=== PATIENT | male | born 2000 | race Caucasian/White ===

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

== ENCOUNTER 2021-07-27 06:41 | Emergency (ER) | payer MEDICAID ==
[~2021-07-27] VITALS: Ht 177.8 cm; Wt 79.4 kg
[~2021-07-27 06:41] MED LIST: INSLANTI SC
[2021-07-27] MEDS ORDERED: SODIUM CHLORIDE 0.9% 1,000 ML IVB ONE (07:15)
[2021-07-27] MEDS ORDERED: SODIUM CHLORIDE 0.9% 3,000 ML IV ONE (07:15)
[2021-07-27 07:45] LABS: Hemoglobin 15.9 g/dL (13.5-17.5)
[2021-07-27 07:47] LABS: Hematocrit 53.8 % (41.0-53.0); Mean Corpuscular Hemoglobin 33.4 pg (28.0-32.0); Mean Corpuscular Hgb Conc. 29.6 g/dL (32.0-36.0); Mean Corpuscular Volume 113.2 fL (80.0-100.0); Red Blood Cells 4.75 10^6/uL (4.5-5.90); Red Cell Distribution Width 14.1 % (11.8-14.3)
[2021-07-27 07:58] LABS: White Blood Cell 41.4 10^3/uL (4.4-10.8)
[2021-07-27] MEDS: PROMETHAZINE HCL 25 MG/ML 1ML IV PRN ×2 (08:00→11:51)
[2021-07-27 08:01] LABS: Urine Bacteria NONE SEEN /hpf (None Seen); Urine Blood Negative /uL (Negative); Urine Specific Gravity 1.025 (1.001-1.035); Urine WBC <1 /hpf (0 - 3)
[2021-07-27 08:02] LABS: Basophils % (manual) 0 (0.0-2.0); Blast Cells 0; Eosinophils % (manual) 0 (0-7); Myelocytes % 0; Promyelocytes % 0; Reactive Lymphocytes 0
[2021-07-27] MEDS ORDERED: SODIUM BICARBONATE 8.4 % INJ 50ML VIAL IV ONE ×4 (08:15→14:35)
[2021-07-27 08:49] LABS: Alcohol, Urine < 3.0 mg/dL (0-10); Amphetamine Screen, Urine NEGATIVE (NEGATIVE); Barbiturate Scree,Urine NEGATIVE (NEGATIVE); Benzodiazephine Screen, Urine NEGATIVE (NEGATIVE); Cannabinoid Screen, Urine POSITIVE (NEGATIVE); Cocaine Screen, Urine NEGATIVE (NEGATIVE); Opiate Scree,Urine NEGATIVE (NEGATIVE); Phencyclidine Screen, Urine NEGATIVE (NEGATIVE)
[2021-07-27] MEDS ORDERED: LORazepam 2MG/ML-1ML VIAL IV ONE ×2 (11:30→13:30)
[2021-07-27] MEDS ORDERED: LORazepam 2MG/ML-1ML VIAL ONE (11:34)
[2021-07-27 11:51] LABS: Band Neutrophils % (manual) 14; Lymphocytes % (manual) 9 (10.0-50.0); Metamyelocytes % 2; Monocytes % (manual) 3 (0-12)
[2021-07-27 12:00] LABS: Albumin 3.4 g/dL (3.4-5.0); BUN/Creatinine Ratio 14.4; Bilirubin, Total 0.5 mg/dL (0.2-1.0); Calcium 7.1 mg/dL (8.5-10.1); Total Protein 6.5 g/dL (6.4-8.2)
[2021-07-27 12:03] LABS: Magnesium 0.4 mg/dL (1.6-2.6); Potassium 5.6 mmol/L (3.5-5.1)
[2021-07-27] MEDS ORDERED: MAGNESIUM SULFATE 1GM/100ML 100 ML IV ONE (12:11)
[2021-07-27] MEDS ORDERED: InsuLIN REG 1unit/0.01ml Soln (100units/ml) IV ONE (12:15)
[2021-07-27] MEDS ORDERED: InsuLIN R (HUMAN) 100 UNITS in SODIUM CHL 0.9% 99 ML IV SCH (12:15)
[2021-07-27] MEDS ORDERED: DEXTROSE (50%) 50ML SYRG IV PRN ×2 (12:15→22:00)
[2021-07-27] MEDS: MAGNESIUM SULFATE 1GM/100ML 100 ML IV SCH ×3 (12:16→14:56)
[2021-07-27] MEDS: SODIUM CHLORIDE 0.9% 1,000 ML IV SCH ×2 (12:16→14:30)
[2021-07-27] MEDS: ACCU-CHEK COMFORT CURVE STRIP VI SCH ×7 (13:41→22:30)
[2021-07-27] MEDS ORDERED: SODIUM CHLORIDE 0.9% 1,000 ML IV ONE ×2 (15:45→22:00)
[2021-07-27] MEDS ORDERED: SODIUM CHLORIDE 0.9% 1,000 ML IV SCH ×4 (16:15→21:30)
[2021-07-27] MEDS ORDERED: D5W/SOD CHLO 0.9% 1,000 ML IV ONE (16:30)
[2021-07-27 17:26] LABS: BUN/Creatinine Ratio 13.1; Calcium 7.9 mg/dL (8.5-10.1)
[2021-07-27] MEDS ORDERED: D5W/SOD CHL 0.45% 1,000 ML IV ONE (18:30)
[2021-07-27 18:35] LABS: BUN/Creatinine Ratio 12.7; Calcium 7.8 mg/dL (8.5-10.1); Magnesium 3.2 mg/dL (1.6-2.6); Potassium 4.1 mmol/L (3.5-5.1)
[2021-07-27] MEDS ORDERED: D5W/SOD CHLO 0.9% 1,000 ML IV SCH (21:30)
[2021-07-27] MEDS ORDERED: INSULIN LANTUS (GLARGINE) 1 /0.01ml (100units/ml) SC SCH (22:00)
[2021-07-27] MEDS ORDERED: SOD CHL 0.45% 1,000 ML IV SCH (22:00)
[2021-07-28] VITALS: BP 120/78
[2021-07-28] MEDS ORDERED: ACCU-CHEK COMFORT CURVE STRIP VI SCH
[2021-07-28] MEDS ORDERED: InsuLIN REG 1unit/0.01ml Soln (100units/ml) SC SCH
[2021-07-28] MEDS: ACCU-CHEK COMFORT CURVE STRIP VI SCH (00:04)
[2021-07-28 00:09] LABS: Calcium 7.9 mg/dL (8.5-10.1); Potassium 3.6 mmol/L (3.5-5.1)
[2021-07-28 00:12] LABS: BUN/Creatinine Ratio 12.4
== END 2021-07-28 00:48 | disposition short-term general hospital (02) ==
LOC: ER 06:41 → EDBD 06:41 → ER 07-28 00:48
DX: R41.82 Altered mental status, unspecified (principal); E11.10 Type 2 diabetes mellitus with ketoacidosis without coma; D72.829 Elevated white blood cell count, unspecified; E87.4 Mixed disorder of acid-base balance; I61.9 Nontraumatic intracerebral hemorrhage, unspecified; F12.10 Cannabis abuse, uncomplicated; R45.1 Restlessness and agitation; Z20.822 Contact with and (suspected) exposure to COVID-19
CPT/HCPCS: 36415; 36600; 70450; 71045; 76775; 80048; 80053; 80307; 81001; 82010; 82140; 82607; 82805; 82962; 83690; 83735; 84443; 85007; 85027; 87040; 87426; 93005; 96361; 96365; 96366; 96372; 96375; 96376; 99291; J1815; J2060; J2550; J3475; J7030; A4565; J7042

== ENCOUNTER 2021-11-16 21:59 | Inpatient (IN) | payer BC, MEDICAID ==
[~2021-11-16] VITALS: Ht 177.8 cm; Wt 72.3 kg
[2021-11-17] VITALS (8 sets, daily range): BP systolic 94–130; BP diastolic 50–92
[2021-11-17 00:59] LABS: Eosinophils # (auto) 0 10 ^3/uL (0-0.8); Eosinophils % (auto) 0.1 % (0.0-7.0); Lymphocytes # (auto) 1.7 10 ^3/uL (0.4-5.4); Neutrophils # (auto) 10.5 10 ^3/uL (1.6-8.6)
[2021-11-17 01:03] LABS: Basophils # (auto) 0.1 10 ^3/uL (0-0.2); Basophils % (auto) 0.5 % (0.0-2.0); Hematocrit 54.5 % (41.0-53.0); Lymphocytes % (auto) 13.6 % (10.0-50.0); Mean Corpuscular Hemoglobin 34.1 pg (28.0-32.0); Mean Corpuscular Hgb Conc. 31.3 g/dL (32.0-36.0); Mean Corpuscular Volume 109.2 fL (80.0-100.0); Monocytes # (auto) 0.4 10 ^3/uL (0-1.3); Monocytes % (auto) 3.4 % (0.0-12.0); Neutrophils % (auto) 82.4 % (37.0-80.0); Nucleated Red Blood Cells % 0.1 %; Red Blood Cells 4.99 10^6/uL (4.5-5.90); Red Cell Distribution Width 14.9 % (11.8-14.3); White Blood Cell 12.7 10^3/uL (4.4-10.8)
[2021-11-17 01:58] LABS: Urine Bacteria NONE SEEN /hpf (None Seen); Urine Blood Negative /uL (Negative); Urine Specific Gravity 1.026 (1.001-1.035); Urine WBC <1 /hpf (0 - 3)
[2021-11-17] MEDS ORDERED: LORazepam 2MG/ML-1ML VIAL IV ONE ×4 (02:00→06:38)
[2021-11-17] MEDS ORDERED: SODIUM CHLORIDE 0.9% 3,000 ML IV ONE (02:00)
[2021-11-17 03:21] LABS: Albumin 4.1 g/dL (3.4-5.0); Calcium 8.2 mg/dL (8.5-10.1); Magnesium 2.6 mg/dL (1.6-2.6)
[2021-11-17 03:26] LABS: Bilirubin, Total 0.5 mg/dL (0.2-1.0); Potassium 5.7 mmol/L (3.5-5.1); Total Protein 7.6 g/dL (6.4-8.2)
[2021-11-17] MEDS: InsuLIN R (HUMAN) 100 UNITS in SODIUM CHL 0.9% 99 ML IV SCH (03:30)
[2021-11-17] MEDS ORDERED: DEXTROSE (50%) 50ML SYRG IV PRN ×2 (03:30→10:00)
[2021-11-17] MEDS ORDERED: InsuLIN REG 1unit/0.01ml Soln (100units/ml) ONE (03:37)
[2021-11-17] MEDS: ACCU-CHEK COMFORT CURVE STRIP VI SCH ×18 (04:30→22:31)
[2021-11-17] MEDS ORDERED: LORazepam 2MG/ML-1ML VIAL ONE (05:16)
[2021-11-17] MEDS: LORazepam 2MG/ML-1ML VIAL ONE ×2 (06:29→06:38)
[2021-11-17] MEDS: SODIUM BICARBONATE 8.4% INJ 50ML SYRINGE ONE ×2 (06:30→06:38)
[2021-11-17] MEDS ORDERED: SODIUM BICARBONATE 8.4 % INJ 50ML VIAL IV ONE (06:38)
[2021-11-17] MEDS: SODIUM CHLORIDE 0.9% 1,000 ML IV SCH ×4 (06:38→12:27)
[2021-11-17] MEDS ORDERED: ETOMIDATE (2MG/ML) 20ML VIAL IV ONE ×2 (07:13→09:00)
[2021-11-17] MEDS ORDERED: MIDAZOLAM DRIP 50 mg/50mL 50 ML IV ONE (07:13)
[2021-11-17] MEDS ORDERED: SUCCINYLCHOLINE CHLORIDE 20 MG/ML 10ML VIAL IV ONE (07:13)
[2021-11-17] MEDS ORDERED: ROCURONIUM 10MG/ML 10ML VIAL IV ONE ×2 (07:18→09:00)
[2021-11-17] MEDS: MIDAZOLAM DRIP 50 mg/50mL 50 ML IV SCH ×5 (07:24→21:26)
[2021-11-17] MEDS ORDERED: SODIUM BICARB 50ML SYR 150 ML in SODIUM CHLORIDE 0.9% 1,000 ML IV ONE ×2 (07:45→08:45)
[2021-11-17 08:39] LABS: Mean Corpuscular Hemoglobin 32.9 pg (28.0-32.0)
[2021-11-17 08:44] LABS: Hematocrit 48.4 % (41.0-53.0); Hemoglobin 13.5 g/dL (13.5-17.5); Mean Corpuscular Hgb Conc. 27.8 g/dL (32.0-36.0); Mean Corpuscular Volume 118.4 fL (80.0-100.0); Red Blood Cells 4.09 10^6/uL (4.5-5.90); Red Cell Distribution Width 15.3 % (11.8-14.3); White Blood Cell 28.1 10^3/uL (4.4-10.8)
[2021-11-17 08:46] LABS: Basophils % (manual) 0 (0.0-2.0); Blast Cells 0; Eosinophils % (manual) 0 (0-7); Reactive Lymphocytes 0
[2021-11-17 08:55] LABS: Calcium 7.9 mg/dL (8.5-10.1); Magnesium 3.1 mg/dL (1.6-2.6)
[2021-11-17 09:04] LABS: BUN/Creatinine Ratio 12.5; Phosphorus 8.2 mg/dL (2.5-4.90)
[2021-11-17 09:19] LABS: Potassium 7.9 mmol/L (3.5-5.1)
[2021-11-17 09:31] LABS: Band Neutrophils % (manual) 6; Lymphocytes % (manual) 11 (10.0-50.0); Metamyelocytes % 1; Monocytes % (manual) 2 (0-12); Myelocytes % 3; Promyelocytes % 2
[2021-11-17 09:55] LABS: Albumin 3.8 g/dL (3.4-5.0); Calcium 7.5 mg/dL (8.5-10.1)
[2021-11-17] MEDS ORDERED: INSULIN LANTUS (GLARGINE) 1 /0.01ml (100units/ml) SC ONE (10:00)
[2021-11-17] MEDS ORDERED: InsuLIN R (HUMAN) 100 UNITS in SODIUM CHL 0.9% 99 ML IV SCH (10:00)
[2021-11-17] MEDS ORDERED: POTASSIUM CHL 20MEQ/100ML 100 ML IV PRN (10:00)
[2021-11-17] MEDS ORDERED: VANCOMYCIN PER PHARMACY 0 MG IV SCH (10:00)
[2021-11-17] MEDS ORDERED: POTASSIUM CHL 20MEQ/100ML 200 ML IV PRN (10:00)
[2021-11-17] MEDS ORDERED: MAGNESIUM SULFATE 1GM/100ML 200 ML IV ONE (10:00)
[2021-11-17 10:04] LABS: BUN/Creatinine Ratio 12.5; Bilirubin, Total 0.5 mg/dL (0.2-1.0); Total Protein 7.2 g/dL (6.4-8.2)
[2021-11-17 10:14] LABS: Potassium 6.9 mmol/L (3.5-5.1)
[2021-11-17] MEDS ORDERED: SODIUM CHLORIDE 0.9% 1,000 ML IV SCH ×4 (10:15→16:00)
[2021-11-17] MEDS: fentaNYL Drip 2500mCg/250mlNS 250 ML IV SCH ×2 (10:42→22:02)
[2021-11-17] MEDS ORDERED: VANCOMYCIN 1GM/250ML 250 ML IV ONE (11:00)
[2021-11-17 11:28] LABS: Lactic Acid w/Reflex 2.4 mmol/L (0.4-2.0)
[2021-11-17] MEDS: InsuLIN REG 1unit/0.01ml Soln (100units/ml) SC SCH ×3 (11:30→22:00)
[2021-11-17] MEDS: PIPERACILLIN-TAZOB 3.375GM 100 ML IV SCH ×3 (12:53→23:35)
[2021-11-17] MEDS: D5W/SOD CHLO 0.9% 1,000 ML IV SCH (15:13)
[2021-11-17 16:37] LABS: Calcium 7.7 mg/dL (8.5-10.1); Potassium 3.4 mmol/L (3.5-5.1)
[2021-11-17 16:39] LABS: BUN/Creatinine Ratio 10.3
[2021-11-17 22:44] LABS: Calcium 7.5 mg/dL (8.5-10.1)
[2021-11-17 22:47] LABS: BUN/Creatinine Ratio 10.1
[2021-11-17 22:58] LABS: Potassium 2.9 mmol/L (3.5-5.1)
[2021-11-17] MEDS ORDERED: SOD CHL 0.45% 1,000 ML IV SCH (23:30)
[2021-11-17] MEDS: POTASSIUM CHL 20MEQ/100ML 100 ML IV SCH (23:58)
[2021-11-18] VITALS (35 sets, daily range): BP systolic 107–140; BP diastolic 64–98
[2021-11-18] MEDS: PROPOFOL 100 ML IV SCH ×2 (00:41→19:03)
[2021-11-18] MEDS: ACCU-CHEK COMFORT CURVE STRIP VI SCH ×10 (01:30→18:47)
[2021-11-18] MEDS: POTASSIUM CHL 20MEQ/100ML 100 ML IV SCH ×6 (03:00→23:00)
[2021-11-18] MEDS: D5W/SOD CHLO 0.9% 1,000 ML IV SCH (03:27)
[2021-11-18] MEDS: InsuLIN R (HUMAN) 100 UNITS in SODIUM CHL 0.9% 99 ML IV SCH (03:30)
[2021-11-18 04:51] LABS: Calcium 7.6 mg/dL (8.5-10.1); Potassium 3.3 mmol/L (3.5-5.1)
[2021-11-18 04:58] LABS: BUN/Creatinine Ratio 9.9
[2021-11-18] MEDS ORDERED: VANCOMYCIN 1GM/250ML 250 ML IV SCH (05:00)
[2021-11-18] MEDS: PIPERACILLIN-TAZOB 3.375GM 100 ML IV SCH ×3 (06:04→18:47)
[2021-11-18] MEDS: InsuLIN REG 1unit/0.01ml Soln (100units/ml) SC SCH ×4 (07:52→22:00)
[2021-11-18] MEDS: INSULIN LANTUS (GLARGINE) 1 /0.01ml (100units/ml) SC SCH (07:54)
[2021-11-18] MEDS ORDERED: LACTATED RINGER'S 1,000 ML IV ONE (09:30)
[2021-11-18] MEDS ORDERED: INSULIN LANTUS (GLARGINE) 1 /0.01ml (100units/ml) SC SCH (10:00)
[2021-11-18 10:01] LABS: Basophils # (auto) 0 10 ^3/uL (0-0.2); Basophils % (auto) 0.1 % (0.0-2.0); Eosinophils # (auto) 0.1 10 ^3/uL (0-0.8); Eosinophils % (auto) 0.4 % (0.0-7.0); Hematocrit 37.2 % (41.0-53.0); Hemoglobin 12.3 g/dL (13.5-17.5); Lymphocytes # (auto) 1.5 10 ^3/uL (0.4-5.4); Mean Corpuscular Hemoglobin 32.8 pg (28.0-32.0); Mean Corpuscular Hgb Conc. 33.1 g/dL (32.0-36.0); Mean Corpuscular Volume 99.3 fL (80.0-100.0); Monocytes % (auto) 7.9 % (0.0-12.0); Neutrophils # (auto) 9.9 10 ^3/uL (1.6-8.6); Neutrophils % (auto) 79.6 % (37.0-80.0); Red Blood Cells 3.75 10^6/uL (4.5-5.90); Red Cell Distribution Width 14.2 % (11.8-14.3); White Blood Cell 12.5 10^3/uL (4.4-10.8)
[2021-11-18 10:10] LABS: Albumin 2.7 g/dL (3.4-5.0); Calcium 7.7 mg/dL (8.5-10.1)
[2021-11-18 10:13] LABS: Bilirubin, Total 0.4 mg/dL (0.2-1.0); Total Protein 5.6 g/dL (6.4-8.2)
[2021-11-18 10:15] LABS: BUN/Creatinine Ratio 7.8
[2021-11-18 10:35] LABS: Urine Bacteria FEW /hpf (None Seen); Urine Blood 2+ /uL (Negative); Urine Specific Gravity 1.017 (1.001-1.035); Urine WBC 8 /hpf (0 - 3)
[2021-11-18 11:57] LABS: Alcohol, Urine < 3.0 mg/dL (0-10); Amphetamine Screen, Urine NEGATIVE (NEGATIVE); Barbiturate Scree,Urine NEGATIVE (NEGATIVE); Benzodiazephine Screen, Urine POSITIVE (NEGATIVE); Cannabinoid Screen, Urine POSITIVE (NEGATIVE); Cocaine Screen, Urine POSITIVE (NEGATIVE); Phencyclidine Screen, Urine NEGATIVE (NEGATIVE)
[2021-11-18] MEDS ORDERED: FUROSEMIDE 40 MG/4 ML VIAL IV ONE (12:00)
[2021-11-18] MEDS ORDERED: D5W/SOD CHL 0.45% 1,000 ML IV SCH (12:00)
[2021-11-18 12:05] LABS: Opiate Scree,Urine NEGATIVE (NEGATIVE)
[2021-11-18] MEDS: MIDAZOLAM DRIP 50 mg/50mL 50 ML IV SCH (13:11)
[2021-11-18 16:53] LABS: Albumin 2.6 g/dL (3.4-5.0); Calcium 7.8 mg/dL (8.5-10.1)
[2021-11-18 16:56] LABS: BUN/Creatinine Ratio 6.9
[2021-11-18 16:59] LABS: Bilirubin, Total 0.5 mg/dL (0.2-1.0); Total Protein 5.5 g/dL (6.4-8.2)
[2021-11-18] MEDS: VANCOMYCIN 1GM/250ML 250 ML IV SCH (18:43)
[2021-11-18] MEDS ORDERED: POTASSIUM CHL 20MEQ/100ML 300 ML IV ONE (18:58)
[2021-11-18] MEDS: D5W/SOD CHL 0.45% 1,000 ML IV SCH (19:04)
[2021-11-19] VITALS (90 sets, daily range): BP systolic 85–147; BP diastolic 52–90
[2021-11-19] MEDS: D5W/SOD CHL 0.45% 1,000 ML IV SCH (05:00)
[2021-11-19 05:26] LABS: Albumin 2.3 g/dL (3.4-5.0); Calcium 7.5 mg/dL (8.5-10.1); Magnesium 2.2 mg/dL (1.6-2.6); Potassium 3.3 mmol/L (3.5-5.1)
[2021-11-19 05:28] LABS: Lactic Acid w/Reflex 2.9 mmol/L (0.4-2.0)
[2021-11-19 05:29] LABS: BUN/Creatinine Ratio 6.8
[2021-11-19] MEDS: VANCOMYCIN 1GM/250ML 250 ML IV SCH (05:30)
[2021-11-19 05:32] LABS: Bilirubin, Total 1.1 mg/dL (0.2-1.0); Total Protein 5.3 g/dL (6.4-8.2)
[2021-11-19 05:33] LABS: Basophils # (auto) 0 10 ^3/uL (0-0.2); Basophils % (auto) 0.3 % (0.0-2.0); Eosinophils # (auto) 0.2 10 ^3/uL (0-0.8); Eosinophils % (auto) 2.1 % (0.0-7.0); Hematocrit 34.3 % (41.0-53.0); Hemoglobin 11.6 g/dL (13.5-17.5); Lymphocytes % (auto) 26.9 % (10.0-50.0); Mean Corpuscular Hemoglobin 33.9 pg (28.0-32.0); Mean Corpuscular Hgb Conc. 33.9 g/dL (32.0-36.0); Monocytes # (auto) 0.2 10 ^3/uL (0-1.3); Monocytes % (auto) 3.3 % (0.0-12.0); Neutrophils % (auto) 67.4 % (37.0-80.0); Nucleated Red Blood Cells % 0.1 %; Red Blood Cells 3.43 10^6/uL (4.5-5.90); Red Cell Distribution Width 14.3 % (11.8-14.3); White Blood Cell 7.5 10^3/uL (4.4-10.8)
[2021-11-19] MEDS: ACCU-CHEK COMFORT CURVE STRIP VI SCH ×5 (06:00→22:00)
[2021-11-19] MEDS: INSULIN LANTUS (GLARGINE) 1 /0.01ml (100units/ml) SC SCH (07:00)
[2021-11-19] MEDS: InsuLIN REG 1unit/0.01ml Soln (100units/ml) SC SCH ×4 (07:00→22:00)
[2021-11-19] MEDS: PIPERACILLIN-TAZOB 3.375GM 100 ML IV SCH ×4 (07:00→17:49)
[2021-11-19] MEDS: fentaNYL Drip 2500mCg/250mlNS 250 ML IV SCH (10:00)
[2021-11-19] MEDS ORDERED: INSLISPI SC (10:09)
[2021-11-19] MEDS: SOD CHL 0.45% 1,000 ML IV SCH ×2 (10:26→17:49)
[2021-11-19] MEDS: POTASSIUM CHL 20MEQ/100ML 100 ML IV SCH ×3 (10:44→15:19)
[2021-11-19] MEDS: FREE WATER GT SCH ×4 (11:52→22:00)
[2021-11-19 12:12] LABS: Anion Gap 7 (5-15); BUN/Creatinine Ratio 6.3; Blood Urea Nitrogen 9 mg/dL (7-18); Calcium 7.7 mg/dL (8.5-10.1); Carbon Dioxide 22 mmol/L (21-32); Chloride 127 mmol/L (98-107); GFR African American 80 mL/min; GFR Non-African American 66 mL/min; Glucose 216 mg/dL (74-106); Potassium 3.6 mmol/L (3.5-5.1); Sodium 156 mmol/L (136-145)
[2021-11-19] MEDS: MIDAZOLAM DRIP 50 mg/50mL 50 ML IV SCH ×2 (13:00→17:35)
[2021-11-19 13:25] LABS: Hepatitis B Surface Antibody Negative (Negative)
[2021-11-19] MEDS ORDERED: POTASSIUM CHL 20MEQ/100ML 100 ML IV ONE (13:30)
[2021-11-19 14:04] LABS: Hepatitis A Total Antibody Positive (Negative)
[2021-11-19] MEDS: PROPOFOL 100 ML IV SCH (15:20)
[2021-11-19 15:47] LABS: Hepatitis C Antibody Negative (Negative)
[2021-11-19 16:35] LABS: BUN/Creatinine Ratio 6.4; Calcium 8.2 mg/dL (8.5-10.1); Potassium 3.3 mmol/L (3.5-5.1)
[2021-11-19] MEDS ORDERED: AZITHROMYCIN 500MG/ 250ML 250 ML IV ONE (18:30)
[2021-11-19] MEDS ORDERED: cefTRIAXone 1GM/50ML D5W 50 ML IV ONE (18:30)
[2021-11-20] VITALS (104 sets, daily range): BP systolic 85–162; BP diastolic 46–110
[2021-11-20] MEDS: PIPERACILLIN-TAZOB 3.375GM 100 ML IV SCH ×4 (00:30→18:41)
[2021-11-20] MEDS: SOD CHL 0.45% 1,000 ML IV SCH ×3 (02:00→17:57)
[2021-11-20] MEDS: FREE WATER GT SCH ×6 (02:00→22:00)
[2021-11-20 05:05] LABS: Basophils # (auto) 0 10 ^3/uL (0-0.2); Basophils % (auto) 0.4 % (0.0-2.0); Eosinophils # (auto) 0.3 10 ^3/uL (0-0.8); Eosinophils % (auto) 3.3 % (0.0-7.0); Hemoglobin 11.7 g/dL (13.5-17.5); Lymphocytes # (auto) 1.6 10 ^3/uL (0.4-5.4); Lymphocytes % (auto) 18.9 % (10.0-50.0); Mean Corpuscular Hemoglobin 33.4 pg (28.0-32.0); Mean Corpuscular Hgb Conc. 33.5 g/dL (32.0-36.0); Mean Corpuscular Volume 99.8 fL (80.0-100.0); Monocytes # (auto) 0.3 10 ^3/uL (0-1.3); Monocytes % (auto) 3.5 % (0.0-12.0); Neutrophils # (auto) 6.2 10 ^3/uL (1.6-8.6); Neutrophils % (auto) 73.9 % (37.0-80.0); Nucleated Red Blood Cells % 0.1 %; Red Blood Cells 3.51 10^6/uL (4.5-5.90); Red Cell Distribution Width 14.5 % (11.8-14.3); White Blood Cell 8.4 10^3/uL (4.4-10.8)
[2021-11-20 05:17] LABS: INR 1.21 (0.9-1.15)
[2021-11-20 05:26] LABS: Albumin 1.9 g/dL (3.4-5.0); Calcium 7.8 mg/dL (8.5-10.1); Magnesium 1.8 mg/dL (1.6-2.6)
[2021-11-20 05:28] LABS: BUN/Creatinine Ratio 7.8
[2021-11-20 05:30] LABS: Bilirubin, Total 1.3 mg/dL (0.2-1.0); Total Protein 5.1 g/dL (6.4-8.2)
[2021-11-20] MEDS: InsuLIN REG 1unit/0.01ml Soln (100units/ml) SC SCH ×3 (06:43→17:56)
[2021-11-20] MEDS: INSULIN LANTUS (GLARGINE) 1 /0.01ml (100units/ml) SC SCH (07:00)
[2021-11-20] MEDS: ACCU-CHEK COMFORT CURVE STRIP VI SCH ×3 (07:16→17:57)
[2021-11-20] MEDS: fentaNYL Drip 2500mCg/250mlNS 250 ML IV SCH (10:00)
[2021-11-20] MEDS ORDERED: PANTOPRAZOLE 40 MG/10 ML VIAL INJ IV ONE (10:45)
[2021-11-20] MEDS: POTASSIUM CHL 20MEQ/100ML 100 ML IV SCH ×2 (12:11→16:31)
[2021-11-20] MEDS ORDERED: POTASSIUM CHL 20MEQ/100ML 100 ML IV SCH ×2 (14:00)
[2021-11-20] MEDS ORDERED: DEXTROSE (50%) 50ML SYRG IV PRN (14:30)
[2021-11-20] MEDS ORDERED: MAGNESIUM SULFATE 1GM/100ML 100 ML IV ONE (14:30)
[2021-11-20] MEDS: Glucerna 1.2 Cal 1Liter BOTTLE GT SCH (15:15)
[2021-11-20] MEDS: ACETAMINOPHEN 325 MG TAB PO PRN (23:00)
[2021-11-21] VITALS (99 sets, daily range): BP systolic 95–163; BP diastolic 43–94
[2021-11-21] MEDS: PROPOFOL 100 ML IV SCH (00:15)
[2021-11-21] MEDS: FREE WATER GT SCH ×6 (02:00→22:00)
[2021-11-21] MEDS: SOD CHL 0.45% 1,000 ML IV SCH (02:00)
[2021-11-21 05:02] LABS: Basophils # (auto) 0 10 ^3/uL (0-0.2); Basophils % (auto) 0.4 % (0.0-2.0); Eosinophils # (auto) 0.1 10 ^3/uL (0-0.8); Eosinophils % (auto) 1.5 % (0.0-7.0); Hematocrit 32.2 % (41.0-53.0); Hemoglobin 10.8 g/dL (13.5-17.5); Lymphocytes # (auto) 1.1 10 ^3/uL (0.4-5.4); Lymphocytes % (auto) 11.6 % (10.0-50.0); Mean Corpuscular Hemoglobin 33.5 pg (28.0-32.0); Mean Corpuscular Hgb Conc. 33.6 g/dL (32.0-36.0); Mean Corpuscular Volume 99.8 fL (80.0-100.0); Monocytes # (auto) 0.6 10 ^3/uL (0-1.3); Monocytes % (auto) 6.1 % (0.0-12.0); Neutrophils # (auto) 7.6 10 ^3/uL (1.6-8.6); Neutrophils % (auto) 80.4 % (37.0-80.0); Nucleated Red Blood Cells % 0.2 %; Red Blood Cells 3.23 10^6/uL (4.5-5.90); Red Cell Distribution Width 14.2 % (11.8-14.3); White Blood Cell 9.5 10^3/uL (4.4-10.8)
[2021-11-21 05:18] LABS: Albumin 1.8 g/dL (3.4-5.0); Calcium 8.1 mg/dL (8.5-10.1); Magnesium 2.1 mg/dL (1.6-2.6); Potassium 3.7 mmol/L (3.5-5.1)
[2021-11-21 05:23] LABS: BUN/Creatinine Ratio 8.2; Bilirubin, Total 0.9 mg/dL (0.2-1.0); Phosphorus 3.6 mg/dL (2.5-4.90); Total Protein 5.5 g/dL (6.4-8.2)
[2021-11-21] MEDS: InsuLIN REG 1unit/0.01ml Soln (100units/ml) SC SCH ×5 (06:00→23:55)
[2021-11-21] MEDS: ACCU-CHEK COMFORT CURVE STRIP VI SCH ×5 (06:00→23:55)
[2021-11-21] MEDS: PIPERACILLIN-TAZOB 3.375GM 100 ML IV SCH ×5 (06:00→23:56)
[2021-11-21] MEDS: fentaNYL Drip 2500mCg/250mlNS 250 ML IV SCH (10:00)
[2021-11-21] MEDS ORDERED: Glucerna 1.2 Cal 1Liter BOTTLE GT SCH (10:00)
[2021-11-21] MEDS: ENOXAPARIN SOD 40 MG/0.4 ML SYRINGE SC SCH (10:04)
[2021-11-21] MEDS: PANTOPRAZOLE 40 MG/10 ML VIAL INJ IV SCH (10:06)
[2021-11-21] MEDS ORDERED: LORazepam 2MG/ML-1ML VIAL ONE (12:00)
[2021-11-21] MEDS ORDERED: LORazepam 2MG/ML-1ML VIAL IV ONE (12:15)
[2021-11-21] MEDS: MIDAZOLAM DRIP 50 mg/50mL 50 ML IV SCH (13:00)
[2021-11-21] MEDS: Glucerna 1.2 Cal 1Liter BOTTLE GT SCH (16:21)
[2021-11-21] MEDS: INSULIN LANTUS (GLARGINE) 1 /0.01ml (100units/ml) SC SCH (22:00)
[2021-11-22] VITALS (106 sets, daily range): BP systolic 106–164; BP diastolic 58–105
[2021-11-22] MEDS: MIDAZOLAM DRIP 50 mg/50mL 50 ML IV SCH (01:54)
[2021-11-22] MEDS: FREE WATER GT SCH ×6 (02:00→21:54)
[2021-11-22] MEDS: ACETAMINOPHEN 325 MG TAB PO PRN (03:28)
[2021-11-22 04:58] LABS: Hematocrit 33.1 % (41.0-53.0); Hemoglobin 11.1 g/dL (13.5-17.5)
[2021-11-22 05:19] LABS: BUN/Creatinine Ratio 7.3; Calcium 8.8 mg/dL (8.5-10.1); Potassium 3.1 mmol/L (3.5-5.1)
[2021-11-22 05:24] LABS: INR 0.99 (0.9-1.15)
[2021-11-22 05:26] LABS: Bilirubin, Total 0.8 mg/dL (0.2-1.0)
[2021-11-22] MEDS: InsuLIN REG 1unit/0.01ml Soln (100units/ml) SC SCH ×3 (06:00→18:05)
[2021-11-22] MEDS: PIPERACILLIN-TAZOB 3.375GM 100 ML IV SCH ×3 (06:00→18:22)
[2021-11-22] MEDS: ACCU-CHEK COMFORT CURVE STRIP VI SCH ×3 (06:00→18:03)
[2021-11-22] MEDS: Glucerna 1.2 Cal 1Liter BOTTLE GT SCH (10:00)
[2021-11-22] MEDS: PANTOPRAZOLE 40 MG/10 ML VIAL INJ IV SCH (10:02)
[2021-11-22] MEDS: ENOXAPARIN SOD 40 MG/0.4 ML SYRINGE SC SCH (10:03)
[2021-11-22] MEDS: SOD CHL 0.45% WITH 20MEQ KCL 1,000 ML IV SCH ×2 (10:03→18:23)
[2021-11-22] MEDS: fentaNYL Drip 2500mCg/250mlNS 250 ML IV SCH (10:06)
[2021-11-22] MEDS: POTASSIUM CHL 20MEQ/100ML 100 ML IV SCH ×2 (16:09→17:59)
[2021-11-22] MEDS: INSULIN LANTUS (GLARGINE) 1 /0.01ml (100units/ml) SC SCH (21:54)
[2021-11-22] MEDS: QUEtiapine FUMARATE 25 MG TAB NG SCH (21:54)
[2021-11-23] VITALS (80 sets, daily range): BP systolic 98–173; BP diastolic 45–109
[2021-11-23] MEDS: PIPERACILLIN-TAZOB 3.375GM 100 ML IV SCH ×2 (00:16→05:50)
[2021-11-23] MEDS: SOD CHL 0.45% WITH 20MEQ KCL 1,000 ML IV SCH ×3 (01:10→16:56)
[2021-11-23] MEDS: FREE WATER GT SCH ×3 (02:00→06:00)
[2021-11-23] MEDS ORDERED: hydrALAZINE HCL 20 MG/ML VL IV PRN (02:15)
[2021-11-23] MEDS ORDERED: hydrALAZINE HCL 20 MG/ML VL ONE (02:46)
[2021-11-23 04:50] LABS: Basophils # (auto) 0.1 10 ^3/uL (0-0.2); Basophils % (auto) 0.9 % (0.0-2.0); Eosinophils # (auto) 0.3 10 ^3/uL (0-0.8); Hematocrit 32.1 % (41.0-53.0); Hemoglobin 10.8 g/dL (13.5-17.5); Lymphocytes # (auto) 1.7 10 ^3/uL (0.4-5.4); Lymphocytes % (auto) 25.1 % (10.0-50.0); Mean Corpuscular Hemoglobin 33.1 pg (28.0-32.0); Mean Corpuscular Hgb Conc. 33.8 g/dL (32.0-36.0); Mean Corpuscular Volume 98.1 fL (80.0-100.0); Monocytes # (auto) 0.8 10 ^3/uL (0-1.3); Monocytes % (auto) 11.8 % (0.0-12.0); Neutrophils % (auto) 58.2 % (37.0-80.0); Nucleated Red Blood Cells % 0.1 %; Red Blood Cells 3.27 10^6/uL (4.5-5.90); Red Cell Distribution Width 13.7 % (11.8-14.3); White Blood Cell 6.9 10^3/uL (4.4-10.8)
[2021-11-23 05:04] LABS: Albumin 1.8 g/dL (3.4-5.0); BUN/Creatinine Ratio 6.7; Calcium 8.1 mg/dL (8.5-10.1); Magnesium 1.7 mg/dL (1.6-2.6); Potassium 3.1 mmol/L (3.5-5.1)
[2021-11-23 05:07] LABS: Bilirubin, Total 0.6 mg/dL (0.2-1.0); Total Protein 5.5 g/dL (6.4-8.2)
[2021-11-23] MEDS: InsuLIN REG 1unit/0.01ml Soln (100units/ml) SC SCH ×4 (05:54→18:00)
[2021-11-23] MEDS: ACCU-CHEK COMFORT CURVE STRIP VI SCH ×4 (06:00→18:23)
[2021-11-23] MEDS: MAGNESIUM SULFATE 1GM/100ML 100 ML IV SCH ×2 (09:00→10:26)
[2021-11-23] MEDS: POTASSIUM CHL 20MEQ/100ML 100 ML IV SCH ×2 (09:00→12:09)
[2021-11-23] MEDS: QUEtiapine FUMARATE 25 MG TAB NG SCH ×2 (10:30→22:09)
[2021-11-23] MEDS: ENOXAPARIN SOD 40 MG/0.4 ML SYRINGE SC SCH (10:31)
[2021-11-23] MEDS: PANTOPRAZOLE 40 MG/10 ML VIAL INJ IV SCH (10:34)
[2021-11-23] MEDS ORDERED: ONDANSETRON HCL 4 MG/2 ML VIAL ONE (10:59)
[2021-11-23] MEDS ORDERED: ALBUTEROL SULF 2.5 MG/0.5ML(0.5%) NEB SOLN NEB PRN (11:00)
[2021-11-23] MEDS ORDERED: SOD CHL 0.45% WITH 20MEQ KCL 1,000 ML IV SCH (11:00)
[2021-11-23] MEDS ORDERED: IPRATROPIUM BROM 0.5 MG/2.5ML INH SOL NEB PRN (11:00)
[2021-11-23] MEDS ORDERED: EPINEPHrine HCL 0.5 ML NEB ONE (11:01)
[2021-11-23] MEDS: ONDANSETRON HCL 4 MG/2 ML VIAL IV PRN ×2 (11:10→23:00)
[2021-11-23] MEDS ORDERED: ALBUTEROL SULF 2.5 MG/0.5ML(0.5%) NEB SOLN ONE (11:23)
[2021-11-23] MEDS ORDERED: IPRATROPIUM BROM 0.5 MG/2.5ML INH SOL ONE (11:23)
[2021-11-23] MEDS ORDERED: POTASSIUM CHL 20MEQ/100ML 100 ML IV ONE (11:45)
[2021-11-23] MEDS ORDERED: EPINEPHrine HCL 0.5 ML NEB NEB ONE (11:45)
[2021-11-23] MEDS: INSULIN LANTUS (GLARGINE) 1 /0.01ml (100units/ml) SC SCH (12:30)
[2021-11-23] MEDS: ACETAMINOPHEN 325 MG TAB PO PRN ×2 (13:35→23:23)
[2021-11-23] MEDS: ceFAZolin 1GM/50ML 50 ML IV SCH (14:35)
[2021-11-23] MEDS ORDERED: ALPRAZolam 0.5 MG TAB ONE (18:44)
[2021-11-23] MEDS: ALPRAZolam 0.5 MG TAB PO PRN ×2 (18:50→23:00)
[2021-11-23] MEDS: DexAMETHasone SOD PHOS 10MG/1ML VIAL INJ IV SCH (22:08)
[2021-11-23] MEDS ORDERED: HALOPERIDOL LACTATE 5 MG/ML INJ VIAL ONE (22:12)
[2021-11-23] MEDS ORDERED: HALOPERIDOL LACTATE 5 MG/ML INJ VIAL IV PRN (22:15)
[2021-11-23] MEDS ORDERED: AMIODARONE HCL 200 MG TAB PO ONE (23:15)
[2021-11-23] MEDS ORDERED: AMIODARONE HCL 200 MG TAB ONE (23:40)
[2021-11-24] VITALS (19 sets, daily range): BP systolic 123–137; BP diastolic 74–87
[2021-11-24] MEDS ORDERED: LORazepam 0.5 MG TAB ONE
[2021-11-24] MEDS: ACCU-CHEK COMFORT CURVE STRIP VI SCH ×13 (00:30→22:54)
[2021-11-24] MEDS: InsuLIN REG 1unit/0.01ml Soln (100units/ml) SC SCH ×4 (00:30→18:00)
[2021-11-24] MEDS ORDERED: LORazepam 0.5 MG TAB PO PRN (04:15)
[2021-11-24 04:50] LABS: Hematocrit 34.8 % (41.0-53.0); Hemoglobin 11.5 g/dL (13.5-17.5); Mean Corpuscular Hemoglobin 33.4 pg (28.0-32.0); Mean Corpuscular Hgb Conc. 33.1 g/dL (32.0-36.0); Mean Corpuscular Volume 100.9 fL (80.0-100.0); Red Blood Cells 3.45 10^6/uL (4.5-5.90); Red Cell Distribution Width 13.7 % (11.8-14.3); White Blood Cell 10.9 10^3/uL (4.4-10.8)
[2021-11-24 04:55] LABS: Basophils % (manual) 0 (0.0-2.0); Blast Cells 0; Eosinophils % (manual) 0 (0-7); Metamyelocytes % 0; Promyelocytes % 0; Reactive Lymphocytes 0
[2021-11-24 05:08] LABS: Band Neutrophils % (manual) 12; Lymphocytes % (manual) 13 (10.0-50.0); Monocytes % (manual) 1 (0-12); Myelocytes % 1
[2021-11-24 05:14] LABS: BUN/Creatinine Ratio 7.6; Calcium 9.5 mg/dL (8.5-10.1); Magnesium 2.2 mg/dL (1.6-2.6); Potassium 4.7 mmol/L (3.5-5.1)
[2021-11-24] MEDS: ACETAMINOPHEN 325 MG TAB PO PRN (05:15)
[2021-11-24] MEDS: DexAMETHasone SOD PHOS 10MG/1ML VIAL INJ IV SCH (05:39)
[2021-11-24] MEDS: ceFAZolin 1GM/50ML 50 ML IV SCH ×3 (05:46→22:00)
[2021-11-24] MEDS ORDERED: HALOPERIDOL LACTATE 5 MG/ML INJ VIAL IM ONE (06:00)
[2021-11-24] MEDS ORDERED: DEXTROSE (50%) 50ML SYRG IV PRN (09:30)
[2021-11-24] MEDS: ENOXAPARIN SOD 40 MG/0.4 ML SYRINGE SC SCH (10:00)
[2021-11-24] MEDS ORDERED: AMIODARONE HCL 200 MG TAB PO SCH (10:00)
[2021-11-24 11:48] LABS: BUN/Creatinine Ratio 7.4; Calcium 9.6 mg/dL (8.5-10.1); Potassium 4.3 mmol/L (3.5-5.1)
[2021-11-24] MEDS: D5W/SOD CHL 0.45% 1,000 ML IV SCH ×2 (12:03→22:00)
[2021-11-24] MEDS: InsuLIN R (HUMAN) 100 UNITS in SODIUM CHL 0.9% 99 ML IV SCH ×4 (12:06→19:46)
[2021-11-24] MEDS: QUEtiapine FUMARATE 25 MG TAB NG SCH ×2 (12:07→22:30)
[2021-11-24] MEDS: PANTOPRAZOLE 40 MG/10 ML VIAL INJ IV SCH (12:14)
[2021-11-24 18:48] LABS: BUN/Creatinine Ratio 7.1; Calcium 9.3 mg/dL (8.5-10.1); Potassium 3.1 mmol/L (3.5-5.1)
[2021-11-24] MEDS: INSULIN LANTUS (GLARGINE) 1 /0.01ml (100units/ml) SC SCH (22:00)
[2021-11-25] VITALS (28 sets, daily range): BP systolic 102–139; BP diastolic 63–89
[2021-11-25 00:23] LABS: BUN/Creatinine Ratio 7.6; Calcium 8.7 mg/dL (8.5-10.1)
[2021-11-25 00:29] LABS: Potassium 2.9 mmol/L (3.5-5.1)
[2021-11-25] MEDS: POTASSIUM CHL 20MEQ/100ML 100 ML IV SCH ×2 (01:00→03:00)
[2021-11-25] MEDS ORDERED: POTASSIUM CHL 20MEQ/100ML 200 ML IV ONE (01:07)
[2021-11-25] MEDS: ACCU-CHEK COMFORT CURVE STRIP VI SCH ×14 (01:30→18:00)
[2021-11-25 04:55] LABS: Basophils # (auto) 0 10 ^3/uL (0-0.2); Basophils % (auto) 0.2 % (0.0-2.0); Eosinophils # (auto) 0 10 ^3/uL (0-0.8); Eosinophils % (auto) 0.1 % (0.0-7.0); Hematocrit 32.9 % (41.0-53.0); Hemoglobin 11.3 g/dL (13.5-17.5); Lymphocytes # (auto) 2.1 10 ^3/uL (0.4-5.4); Lymphocytes % (auto) 19.4 % (10.0-50.0); Mean Corpuscular Hemoglobin 33.4 pg (28.0-32.0); Mean Corpuscular Hgb Conc. 34.2 g/dL (32.0-36.0); Mean Corpuscular Volume 97.7 fL (80.0-100.0); Monocytes # (auto) 1.2 10 ^3/uL (0-1.3); Monocytes % (auto) 11.3 % (0.0-12.0); Neutrophils # (auto) 7.4 10 ^3/uL (1.6-8.6); Red Blood Cells 3.37 10^6/uL (4.5-5.90); Red Cell Distribution Width 13.4 % (11.8-14.3); White Blood Cell 10.7 10^3/uL (4.4-10.8)
[2021-11-25 05:14] LABS: Calcium 8.8 mg/dL (8.5-10.1); Potassium 3.7 mmol/L (3.5-5.1)
[2021-11-25 05:18] LABS: BUN/Creatinine Ratio 8.4
[2021-11-25] MEDS: InsuLIN REG 1unit/0.01ml Soln (100units/ml) SC SCH ×4 (06:00→16:50)
[2021-11-25] MEDS: ceFAZolin 1GM/50ML 50 ML IV SCH (06:00)
[2021-11-25] MEDS: METOPROLOL SUCCINATE XL 50 MG TAB PO SCH (10:00)
[2021-11-25] MEDS ORDERED: POTASSIUM CHL 20 Meq TABLET PO ONE (10:00)
[2021-11-25] MEDS ORDERED: ALPRAZolam 0.5 MG TAB PO PRN (11:15)
[2021-11-25] MEDS ORDERED: MULTIPLE VITAMINS W/ MINERALS TAB PO ONE (11:30)
[2021-11-25] MEDS: CEPHALEXIN 250 MG CAP PO SCH (12:00)
[2021-11-25] MEDS: INSULIN LANTUS (GLARGINE) 1 /0.01ml (100units/ml) SC SCH (21:21)
[2021-11-26] MEDS: CEPHALEXIN 250 MG CAP PO SCH ×4 (00:47→12:58)
[2021-11-26 05:03] LABS: Basophils # (auto) 0.1 10 ^3/uL (0-0.2); Eosinophils # (auto) 0.1 10 ^3/uL (0-0.8)
[2021-11-26 05:11] LABS: Basophils % (auto) 0.9 % (0.0-2.0); Eosinophils % (auto) 1.1 % (0.0-7.0); Hematocrit 37.6 % (41.0-53.0); Hemoglobin 12.9 g/dL (13.5-17.5); Lymphocytes % (auto) 34.9 % (10.0-50.0); Mean Corpuscular Hemoglobin 33.5 pg (28.0-32.0); Mean Corpuscular Hgb Conc. 34.4 g/dL (32.0-36.0); Mean Corpuscular Volume 97.5 fL (80.0-100.0); Monocytes # (auto) 0.7 10 ^3/uL (0-1.3); Neutrophils # (auto) 6.5 10 ^3/uL (1.6-8.6); Neutrophils % (auto) 57.1 % (37.0-80.0); Nucleated Red Blood Cells % 0.2 %; Red Blood Cells 3.86 10^6/uL (4.5-5.90); Red Cell Distribution Width 13.6 % (11.8-14.3); White Blood Cell 11.3 10^3/uL (4.4-10.8)
[2021-11-26 05:27] LABS: Anion Gap 10 (5-15); BUN/Creatinine Ratio 13.6; Blood Urea Nitrogen 12 mg/dL (7-18); Calcium 8.9 mg/dL (8.5-10.1); Carbon Dioxide 18 mmol/L (21-32); Chloride 107 mmol/L (98-107); GFR African American 139 mL/min; GFR Non-African American 115 mL/min; Glucose 182 mg/dL (74-106); Potassium 3.4 mmol/L (3.5-5.1); Sodium 135 mmol/L (136-145)
[2021-11-26] MEDS: ACCU-CHEK COMFORT CURVE STRIP VI SCH ×3 (06:00→13:06)
[2021-11-26] MEDS: InsuLIN REG 1unit/0.01ml Soln (100units/ml) SC SCH ×3 (06:30→13:06)
[2021-11-26 08:00] VITALS: BP 126/90
[2021-11-26] MEDS: METOPROLOL SUCCINATE XL 50 MG TAB PO SCH (09:55)
[2021-11-26] MEDS ORDERED: MULTIPLE VITAMINS W/ MINERALS TAB PO SCH (10:00)
[2021-11-26 12:51] VITALS: BP 129/96
[2021-11-26 13:59] VITALS: BP 129/96
[2021-11-26 16:30] VITALS: BP 117/74
== END 2021-11-26 16:39 | disposition home or self-care (01) | DRG 870 ==
LOC: ER 21:59 → OVERFLOW 11-17 12:46 → ICU CENTRL 11-18 15:03 → DOU IN ICU 11-26 06:32 → WEST WING 11-26 10:19
PROVIDERS: ADMIT Internal Medicine; ATTEND Internal Medicine
PROC: 5A1955Z Respiratory Ventilation, Greater than 96 Consecutive Hours (ICD-10-PCS; principal; 2021-11-17)
PROC: 06HY33Z Insertion of Infusion Device into Lower Vein, Percutaneous Approach (ICD-10-PCS; 2021-11-17)
PROC: 0BH17EZ Insertion of Endotracheal Airway into Trachea, Via Natural or Artificial Opening (ICD-10-PCS; 2021-11-17)
PROC: B44GZZZ Ultrasonography of Left Lower Extremity Arteries (ICD-10-PCS; 2021-11-17)
DX: A41.9 Sepsis, unspecified organism (principal); E11.10 Type 2 diabetes mellitus with ketoacidosis without coma; J96.01 Acute respiratory failure with hypoxia; G93.41 Metabolic encephalopathy; J15.211 Pneumonia due to Methicillin susceptible Staphylococcus aureus; N17.0 Acute kidney failure with tubular necrosis; E87.0 Hyperosmolality and hypernatremia; I47.1 Supraventricular tachycardia; J98.11 Atelectasis; R65.20 Severe sepsis without septic shock; Z20.822 Contact with and (suspected) exposure to COVID-19; E87.5 Hyperkalemia; N18.9 Chronic kidney disease, unspecified; E11.21 Type 2 diabetes mellitus with diabetic nephropathy; E11.65 Type 2 diabetes mellitus with hyperglycemia; R79.89 Other specified abnormal findings of blood chemistry; E87.6 Hypokalemia; F19.90 Other psychoactive substance use, unspecified, uncomplicated; E78.1 Pure hyperglyceridemia; E83.39 Other disorders of phosphorus metabolism; K76.0 Fatty (change of) liver, not elsewhere classified; F14.10 Cocaine abuse, uncomplicated; E11.22 Type 2 diabetes mellitus with diabetic chronic kidney disease; F19.10 Other psychoactive substance abuse, uncomplicated; Z79.4 Long term (current) use of insulin; Z91.19 Patient's noncompliance with other medical treatment and regimen
CPT/HCPCS: 36415; 36600; 71045; 76705; 80048; 80053; 80061; 80307; 81001; 82010; 82550; 82805; 82962; 83036; 83605; 83690; 83735; 83880; 83930; 84100; 84132; 84295; 84443; 84484; 85007; 85014; 85018; 85025; 85027; 85610; 85652; 86703; 86704; 86706; 86708; 86709; 86803; 87040; 87070; 87077; 87081; 87186; 87205; 87340; 93005; 93306; 94002; 94003; 94640; 96361; 96365; 96375; 96376; 97163; 99291; C9113; G0378; J0330; J0690; J0696; J1100; J1815; J2250; J2405; J2543; J2704; J3480; J7060

== ENCOUNTER → 2022-01-23 | Emergency (ER) | payer BC, MEDICAID ==
[~2022-01-23] MED LIST changes: -INSLANTI SC; +INSLISPI SC
== END | disposition left against medical advice (07) ==
LOC: ER 14:21
DX: E11.9 Type 2 diabetes mellitus without complications (principal); Z53.21 Procedure and treatment not carried out due to patient leaving prior to being seen by health care provider
CPT/HCPCS: 82962